=== PATIENT | male | born 1990 | race Caucasian/White ===

== ENCOUNTER 2022-04-05 01:32 | Emergency (ER) | payer SELFPAY ==
[~2022-04-05] VITALS: Ht 172.7 cm; Wt 170.4 kg
[2022-04-05 02:11] LABS: BILIRUBIN,URINE NEGATIVE (NEGATIVE); CLARITY,URINE CLEAR; COLOR,URINE YELLOW; GLUCOSE, URINE (UA) NEGATIVE (NEGATIVE); KETONES,URINE NEGATIVE (NEGATIVE); LEUKOCYTE ESTERASE ,URINE 3+ (NEGATIVE); NITRITE,URINE NEGATIVE (NEGATIVE); PROTEIN,URINE NEGATIVE (NEGATIVE)
[2022-04-05 02:22] LABS: BACTERIA,URINE TRACE /HPF; SQUAMOUS EPITHELIAL CELL,UR RARE /HPF; WBC,URINE 25-50 /HPF
[2022-04-05] MEDS ORDERED: DOXY100T2 PO (02:56)
--- NOTE | 2022-04-05 02:56 | ED GU-Male ---
General Chief Complaint: - Reproductive Stated Complaint: POSS STD,LOWER REGION SWOLLEN Nursing Triage Note: PT ARRIVAL TO ER WANTING STI CHECK. PT HAS SWELLING AND RASH TO SCROATUM AFTER HOOKING UP WITH HIS FRIEND WITH BENEFITS PER PATIENT. STARTED 2 DAYS AGO. Source: patient Exam Limitations: no limitations History of Present Illness Date Seen by Provider: Apr 05, 2022 Time Seen by Provider: 02:36 Initial Comments Patient to the ER by private conveyance chief complaint for the past 2 to 3 days he has noticed some pain in this ulcers with generalized inflammation of the scrotum and penis. He has had the clap before. He just started getting with a new female partner within the last few months. He is monogamous. He is not having any fevers chills dysuria or discharge from the urethra. Allergies and Home Medications Allergies Coded Allergies: No Known Drug Allergies (Unverified , 04/05/22) Patient Home Medication List Home Medication List Reviewed: Yes Review of Systems Review of Systems Constitutional: No chills, No diaphoresis EENTM: No ear discharge, No hearing loss, No ear pain Respiratory: No cough, No short of breath Cardiovascular: No chest pain, No palpitations Gastrointestinal: No abdominal pain, No nausea Genitourinary: denies discharge, denies dysuria Musculoskeletal: No back pain, No joint pain Skin: No pruritus, No rash All Other Systemes Reviewed Negative Unless Noted: Yes Past [id number] Hx Patient Social History Tobacco Use?: Yes Tobacco type used: Cigarettes Smoking Status: Current Everyday Smoker Use of E-Cig and/or Vaping dev: No Substance use?: No Alcohol Use?: Yes Alcohol type: Beer, Hard Liquor Alcohol Frequency: Several times a month Pt feels they are or have been: No Immunizations Up To Date Influenza Vaccine Up-to-Date: No; Not Current Physical Exam Vital Signs Vital Signs - First Documented 04/05/22 01:58 Temp 36.8 Pulse 82 Resp 20 B/P (MAP) 181/111 (134) Pulse Ox 98 O2 Delivery Room Air Capillary Refill : Less Than 3 Seconds Height, Weight, BMI Height: '" Weight: lbs. oz. kg; 57.00 BMI Method: General Appearance: no apparent distress, obese HEENT: PERRL/EOMI, pharynx normal Cardiovascular: normal peripheral pulses, regular rate, rhythm Respiratory: no respiratory distress, no accessory muscle use Neurologic/Psychiatric: alert, normal mood/affect, oriented x 3 Skin: other (Pain his head and scrotum have multiple small 4 to 5 mm diameter round circumferential well demarcated edge shallow ulcers that are nontender to palpation without discharge. No bullae, vesicles. They are spread out with erythematous base is about 1 to 2 cm around them. No urethral discharge or mass palpable on the penis.) Progress/Results/Core Measures Suspected Sepsis SIRS Temperature: Pulse: 82 Respiratory Rate: 20 Blood Pressure 181 /111 Mean: 134 Results/Orders Lab Results Laboratory Tests Test 04/05/22 01:53 Range/Units Urine Color YELLOW Urine Clarity CLEAR Urine pH 6.0 5-9 Urine Specific [place] 1.025 H 1.016-1.022 Urine Protein NEGATIVE NEGATIVE Urine Glucose (UA) NEGATIVE NEGATIVE Urine Ketones NEGATIVE NEGATIVE Urine Nitrite NEGATIVE NEGATIVE Urine Bilirubin NEGATIVE NEGATIVE Urine Urobilinogen 0.2 < = 1.0 MG/DL Urine Leukocyte Esterase 3+ H NEGATIVE Urine RBC (Auto) TRACE-I H NEGATIVE Urine RBC 2-5 H /HPF Urine WBC 25-50 H /HPF Urine Squamous Epithelial Cells RARE /HPF Urine Crystals NONE /LPF Urine Bacteria TRACE /HPF Urine Casts NONE /LPF Urine Mucus NEGATIVE /LPF Urine Culture Indicated YES My Orders Orders - KENNY SALINAS Ua Culture If Indicated (04/05/22 01:57) Neis Jermain Dna Urine Test (04/05/22 01:57) Chlamydia Trachomatis Urine (04/05/22 01:57) Urine Culture (04/05/22 01:53) Ceftriaxone (Rocephin) (04/05/22 03:00) Azithromycin Tablet (Zithromax Tablet) (04/05/22 03:00) Lidocaine 1% Inj 20 Ml (Xylocaine 1% Inj (04/05/22 03:00) Syphilis Antibody Screen (04/05/22 02:49) Vital Signs/I&O 04/05/22 01:58 Temp 36.8 Pulse 82 Resp 20 B/P (MAP) 181/111 (134) Pulse Ox 98 O2 Delivery Room Air Capillary Refill : Less Than 3 Seconds Blood Pressure Mean: 134 Progress Note : Time: 02:53 Progress Note STD such as syphilis or Haemophilus ducreyi however they are nontender. We will give him a gram of Rocephin, a gram of azithromycin and put him on doxycycline. We will have him stop taking the Keflex that he was supposed to be on for his leg cellulitis. He says the cellulitis has pretty much cleared up. Less likely they are herpetic lesions. Departure Impression Primary Impression: Genital lesion, male Disposition: 01 HOME, SELF-CARE Condition: Stable Departure-Patient Inst. Decision time for Depature: 02:54 Referrals: NO,LOCAL PHYSICIAN (PCP/Family) Primary Care Physician Patient Instructions: Chlamydia and Gonorrhea Add. Discharge Instructions: Doxycycline 1 capsule twice a day with food for 10 days. Keep the area clean and dusted with appropriate body powder. Follow-up with health department if symptoms do not improve with a course of antibiotics. Probiotics 1 capsule twice a day to prevent the common side effects of antibiotics. This can be obtained [id number] All discharge instructions reviewed with patient and/or family. Voiced understanding. Scripts Doxycycline Hyclate (Doxycycline Hyclate) 100 Mg Tablet 100 MG PO BID, #20 TAB 0 Refills Prov: KENNY SALINAS 04/05/22 KENNY SALINAS Apr 05, 2022 02:56
[2022-04-05] MEDS ORDERED: cefTRIAXone 1,000 MG VIAL IM ONE (03:00)
[2022-04-05] MEDS ORDERED: LIDOCAINE 1% INJ 20 ML VIAL INJ ONE (03:00)
[2022-04-05] MEDS ORDERED: AZITHROMYCIN 250 MG TAB (ZITHROMAX) PO ONE (03:00)
[2022-04-05 03:16] VITALS: BP 164/99
== END 2022-04-05 03:14 | disposition home or self-care (01) ==
LOC: EDUNIT# 01:32 → ER 01:37
DX: L98.499 Non-pressure chronic ulcer of skin of other sites with unspecified severity (principal); N49.2 Inflammatory disorders of scrotum; N48.89 Other specified disorders of penis; F17.210 Nicotine dependence, cigarettes, uncomplicated
CPT/HCPCS: 36415; 81000; 87088; 87491; 87591; 99284